=== PATIENT | male | born 1995 | race African-American/Black ===

== ENCOUNTER 2016-10-15 17:25 | Emergency (ER) | payer OTHER ==
[~2016-10-15] VITALS: Ht 172.7 cm; Wt 122.1 kg
[~2016-10-15 17:25] MED LIST: AMOXICILLIN500 MG PO; MOTRIN600 MG PO; TRAMADOL HCL50 MG PO
[2016-10-15] MEDS ORDERED: FLEXERIL10 MG PO (20:01)
[2016-10-15] MEDS ORDERED: MOTRIN600 MG PO (20:01)
[2016-10-15 20:11] VITALS: BP 117/75
== END 2016-10-15 20:13 | disposition home or self-care (01) ==
LOC: EME 17:25
DX: S16.1XXA Strain of muscle, fascia and tendon at neck level, initial encounter (principal); S80.02XA Contusion of left knee, initial encounter; R07.89 Other chest pain; V49.50XA Passenger injured in collision with unspecified motor vehicles in traffic accident, initial encounter; G89.29 Other chronic pain; M54.2 Cervicalgia; F17.200 Nicotine dependence, unspecified, uncomplicated
CPT/HCPCS: 71020; 72125; 72170; 73564; 99281; 99284

== ENCOUNTER 2017-10-05 15:59 | Emergency (ER) | payer OTHER ==
[~2017-10-05] VITALS: Ht 172.7 cm; Wt 110.6 kg
[~2017-10-05 15:59] MED LIST changes: +FLEXERIL10 MG PO
[2017-10-05] MEDS ORDERED: POLYTRIM EYE DR10 ML LEFT EYE (16:58)
[2017-10-05 17:11] VITALS: BP 121/76
== END 2017-10-05 17:09 | disposition home or self-care (01) ==
LOC: EME 15:59
DX: H10.32 Unspecified acute conjunctivitis, left eye (principal)
CPT/HCPCS: 99281; 99284

== ENCOUNTER 2017-11-22 13:17 | Emergency (ER) | payer OTHER ==
[~2017-11-22] VITALS: Ht 177.8 cm; Wt 107.3 kg
[~2017-11-22 13:17] MED LIST changes: +POLYTRIM EYE DR10 ML LEFT EYE
[2017-11-22 15:40] LABS: SOURCE URINE
[2017-11-22 16:19] VITALS: BP 124/80
[2017-11-23 12:36] LABS: CHLAMYDIA TRACHOMATIS NEGATIVE; NEISSERIA GONORRHOEAE NEGATIVE
== END 2017-11-22 16:20 | disposition home or self-care (01) ==
LOC: EME 13:17
PROVIDERS: Nurse Practitioner Family
DX: N48.89 Other specified disorders of penis (principal); F17.200 Nicotine dependence, unspecified, uncomplicated
CPT/HCPCS: 87254; 87491; 87591; 99281; 99283

== ENCOUNTER 2018-01-14 23:20 | Emergency (ER) | payer OTHER ==
[~2018-01-14] VITALS: Ht 172.7 cm; Wt 110.8 kg
[2018-01-15 00:33] LABS: APPEARANCE CLOUDY ((CLEAR)); BILIRUBIN NEGATIVE; BLOOD SMALL; COLOR YELLOW ((YELLOW)); GLUCOSE (STRIP) NEGATIVE; KETONES NEGATIVE; LEUKOCYTES LARGE; NITRITE NEGATIVE; PROTEIN (STRIP) 30; SPECIFIC GRAVITY 1.029 (1.000-1.030)
[2018-01-15 00:38] LABS: BACTERIA NONE SEEN /HPF; EPITHELIAL CELLS NONE SEEN /HPF; MUCUS TRACE /LPF; RED BLOOD CELLS 30-40 /HPF (0-5); UCUL ADDED? YES; WHITE BLOOD CELLS TNTC /HPF (0-5)
[2018-01-15] MEDS ORDERED: CIPRO500 MG PO (00:46)
[2018-01-15 00:56] VITALS: BP 110/83
== END 2018-01-15 01:03 | disposition home or self-care (01) ==
LOC: EME 23:20
DX: N34.2 Other urethritis (principal); A64 Unspecified sexually transmitted disease; F17.200 Nicotine dependence, unspecified, uncomplicated
CPT/HCPCS: 81003; 87077; 87086; 87185; 99281; 99284; J0696

== ENCOUNTER 2018-03-13 00:18 | Emergency (ER) | payer OTHER ==
[~2018-03-13] VITALS: Ht 172.7 cm; Wt 105.1 kg
[~2018-03-13 00:18] MED LIST changes: +CIPRO500 MG PO
[2018-03-13] MEDS ORDERED: NAPROSYN500 MG PO (00:51)
[2018-03-13] MEDS ORDERED: AMOXICILLIN500 MG PO (00:51)
[2018-03-13 01:00] VITALS: BP 154/80
== END 2018-03-13 01:01 | disposition home or self-care (01) ==
LOC: EME 00:18
DX: K08.89 Other specified disorders of teeth and supporting structures (principal); R22.0 Localized swelling, mass and lump, head; F17.200 Nicotine dependence, unspecified, uncomplicated
CPT/HCPCS: 99281; 99283

== ENCOUNTER 2018-04-04 03:07 | Emergency (ER) | payer OTHER ==
[~2018-04-04] VITALS: Ht 175.3 cm; Wt 107.0 kg
[~2018-04-04 03:07] MED LIST changes: +NAPROSYN500 MG PO
[2018-04-04 03:08] VITALS: BP 121/85
== END 2018-04-04 03:56 | disposition left against medical advice (07) ==
LOC: EME 03:07
DX: J39.9 Disease of upper respiratory tract, unspecified (principal); Z53.21 Procedure and treatment not carried out due to patient leaving prior to being seen by health care provider

== ENCOUNTER 2018-04-08 23:27 | Emergency (ER) | payer SELFPAY ==
[~2018-04-08] VITALS: Ht 172.7 cm; Wt 114.9 kg
[2018-04-09 00:51] LABS: BASOPHIL (%) 0.2 % (0-1); EOSINOPHIL (%) 0.5 % (0-5); EOSINOPHIL COUNT 0.1 K/uL (0-0.3); HEMATOCRIT 42.2 % (38.0-50.0); HEMOGLOBIN 13.9 G/DL (12.5-16.6); IMMATURE GRANULOCYTE (%) 0.4 % (0.0-0.7); LYMPHOCYTE (%) 15.3 % (15-42); LYMPHOCYTE COUNT 1.8 K/uL (1.0-2.8); MCH 29.3 PG (29.0-34.0); MCHC 32.9 G/DL (30.0-36.0); MCV 88.8 FL (86-99); MONOCYTE (%) 6.4 % (3-12); MONOCYTE COUNT 0.7 K/uL (0-0.8); NEUTROPHIL (%) 77.2 % (45-76); PLATELET COUNT 289 K/uL (156-360); RBC DIS.WIDTH-CV 13.2 % (11.8-14.6); RBC DIS.WIDTH-SD 42.9 % (39-53); RED BLOOD COUNT 4.75 M/uL (4.00-5.50); WHITE BLOOD COUNT 11.6 K/uL (4.1-10.2)
[2018-04-09 01:08] LABS: CHLORIDE 108 mEq/L (99-109); SODIUM 142 mEq/L (136-147)
[2018-04-09 01:10] LABS: GLUCOSE 104 mg/dL (70-99)
[2018-04-09 01:13] LABS: SERUM ETHYL ALCOHOL < 10 mg/dL
[2018-04-09 01:14] LABS: CREATININE 1.2 mg/dL (0.6-1.3); GFR ESTIMATE (CALCULATED) > 59 mL/min/ (58.99-99999)
[2018-04-09 01:15] LABS: UREA NITROGEN (BUN) 14 mg/dL (9-23)
[2018-04-09 03:06] LABS: AMPHETAMINE NEGATIVE (500 ng/mL); BARBITURATES NEGATIVE (200 ng/mL); BENZODIAZEPINES NEGATIVE (150 ng/mL); BUPRENORPHINE NEGATIVE (10 ng/mL); COCAINE PRESUMPTIVE POSITIVE (150 ng/mL); METHADONE NEGATIVE (200 ng/mL); METHAMPHETAMINE NEGATIVE (500 ng/mL); OPIATES (MORPHINE) NEGATIVE (100 ng/mL); OXYCODONE NEGATIVE (100 ng/mL); PHENCYCLIDINE NEGATIVE (25 ng/mL); PROPOXYPHENE NEGATIVE (300 ng/mL); THC CANNABINOIDS PRESUMPTIVE POSITIVE (50 ng/mL); TRICYCLIC ANTIDEPRESSANTS NEGATIVE (300 ng/mL)
[2018-04-09 05:02] VITALS: BP 115/74
== END 2018-04-09 05:03 | disposition home or self-care (01) ==
LOC: EME → EDBD 23:27 → EME 04-09 05:03
PROVIDERS: Emergency Medicine
DX: S40.022A Contusion of left upper arm, initial encounter (principal); S40.012A Contusion of left shoulder, initial encounter; S06.9X9A Unspecified intracranial injury with loss of consciousness of unspecified duration, initial encounter; M54.2 Cervicalgia; M25.522 Pain in left elbow; M54.5 Low back pain; V13.4XXA Pedal cycle driver injured in collision with car, pick-up truck or van in traffic accident, initial encounter; Y93.55 Activity, bike riding; F14.90 Cocaine use, unspecified, uncomplicated; F12.90 Cannabis use, unspecified, uncomplicated; F17.200 Nicotine dependence, unspecified, uncomplicated
CPT/HCPCS: 70450; 72125; 72128; 72131; 73030; 73080; 74176; 80048; 84999; 85025; 99281; 99284; G0480